=== PATIENT | male | born 1950 | race Caucasian/White ===

== ENCOUNTER 2019-04-19 13:37 | Emergency (ER) | payer BC, OTHER ==
[~2019-04-19] VITALS: Ht 177.8 cm; Wt 76.4 kg
[~2019-04-19 13:37] MED LIST: ASPI-535; ASPI-903 PO; ATEN100T PO; BUME1TAB PO; CLON-379 PO; DILT360C PO; FURO-110 PO
[2019-04-19 14:11] VITALS: Ht 177.8 cm; Wt 76.4 kg
[2019-04-19] MEDS ORDERED: FUROSEMIDE 40 MG INJ IV ONE (15:30)
[2019-04-19] MEDS ORDERED: ENALAPRILAT 1.25 MG INJ IV ONE (17:00)
[2019-04-19 18:15] VITALS: BP 164/91; PULSE 87; RESP 16
== END 2019-04-19 18:32 | disposition home or self-care (01) ==
LOC: E/R 13:37
DX: I50.41 Acute combined systolic (congestive) and diastolic (congestive) heart failure (principal); I10 Essential (primary) hypertension; R60.0 Localized edema; I25.10 Atherosclerotic heart disease of native coronary artery without angina pectoris; E66.9 Obesity, unspecified; Z68.24 Body mass index [BMI] 24.0-24.9, adult
CPT/HCPCS: 71045; 80053; 83690; 83880; 84484; 85025; 93005; 96374; 96375; J1940; Z7502; Z7610